=== PATIENT | female | born 1990 | race Caucasian/White ===

== ENCOUNTER 2018-07-27 18:18 | Observation (INO) | payer MEDICAID ==
[2018-07-27] MEDS ORDERED: ONDANSETRON HCL INJ/PF 4 MG/2 ML SDV IV ONE (18:52)
--- NOTE | 2018-07-27 18:54 | ER Document Report ---
ED General - General Chief Complaint: Abdominal Pain Stated Complaint: ABDOMEN PAIN Time Seen by Provider: 07/27/18 18:51 TRAVEL OUTSIDE OF THE [place] IN LAST 30 DAYS: No - HPI Notes: Patient is a 27-year-old female with no significant past medical history who presents to the ED complaining of right upper quadrant epigastric pain 1 week that has been relatively constant. Patient states that she has had some intermittent nausea with 1-2 episodes of vomiting, diarrhea, as well as a decreased p.o. intake secondarily. Patient states that she does have some right shoulder/scapular discomfort as well. Patient states that she is urinating normally. Patient has a history of a tubal ligation. Patient was referred here from urgent care for evaluation. Denies any headache, fever, URI , sore throat, chest pain, palpitations, syncope, cough, shortness of breath, wheeze, dyspnea, urinary retention, dysuria, hematuria, back pain, rash. - Related Data Allergies/Adverse Reactions: amoxicillin [Amoxicillin] Allergy (Intermediate, Verified 07/27/18 18:19) Urticaria Past Medical History - Social History Smoking Status: Unknown if Ever Smoked Family History: Reviewed & Not Pertinent Past Surgical History: Reports: Hx Oral Surgery, Hx Tonsillectomy - Immunizations Immunizations up to date: No Hx Diphtheria, Pertussis, Tetanus Vaccination: Yes - 09/29/13 Review of Systems - Review of Systems -: Yes All other systems reviewed and negative Physical Exam - Vital signs Vitals: Temp Pulse Resp BP Pulse Ox 98.9 F 108 H 16 124/71 100 07/27/18 18:22 07/27/18 18:22 07/27/18 18:22 07/27/18 18:22 07/27/18 18:22 - Notes Notes: PHYSICAL EXAMINATION: GENERAL: Well-appearing, well-nourished and in no acute distress. EYES: Pupils equal round and reactive to light, extraocular movements intact, sclera anicteric, conjunctiva are normal. ENT: Nares patent and without discharge. oropharynx clear without exudates. No tonsilar hypertrophy or erythema. Moist mucous membranes. NECK: Normal range of motion, supple without lymphadenopathy LUNGS: Breath sounds clear to auscultation bilaterally and equal. No wheezes rales or rhonchi. HEART: Regular rate and rhythm without murmurs, rubs, gallops. ABDOMEN: Soft, nondistended abdomen. No guarding, no rebound. No masses appreciated. Normal bowel sounds present. No CVA tenderness bilaterally. + RUQ tenderness and epigastric tenderness. No tenderness at McBurney point or lower pelvic. Musculoskeletal: FROM to passive/active. Strength 5+/5. Extremities: No cyanosis, clubbing, or edema b/l. Peripheral pulses 2+. Capillary refill less than 3 seconds. NEUROLOGICAL: Normal speech, normal gait. PSYCH: Normal mood, normal affect. SKIN: Warm, Dry, normal turgor, no rashes or lesions noted. Course - Re-evaluation Re-evalutation: 07/27/18 22:21 Patient continues to have right upper quadrant abdominal tenderness and pain. She has not had any episodes of emesis. Last p.o. intake was yesterday. Patient is showing an elevated white blood cell count at 14.3 with a left shift. LFTs and lipase are unremarkable. Urinalysis unremarkable. Ultrasound shows cholelithiasis Vitals are acceptable at this time. I did call and review with Dr. Gallegos who will come and evaluate the patient. 07/27/18 22:33 Dr. Gallegos evaluated the patient and will admit this patient for cholecystectomy. He would like fluids, Rocephin, n.p.o. Patient has itching with penicillins otherwise. - Vital Signs Vital signs: Temp Pulse Resp BP Pulse Ox 98.9 F 108 H 16 124/71 100 07/27/18 18:22 07/27/18 18:22 07/27/18 18:22 07/27/18 18:22 07/27/18 18:22 - Laboratory Result Diagrams: 07/27/18 19:45 07/27/18 19:45 Laboratory results interpreted by me: 07/27/18 07/27/18 07/27/18 19:45 19:45 19:45 WBC 14.3 H Hct 35.8 L MCV 77 L MCH 26.3 L RDW 14.9 H Absolute Neutrophils 8.9 H Total Protein 8.3 H Lipase 20.4 L Urine Protein 100 H Urine Ketones TRACE H Urine Urobilinogen 2.0 H Ur Leukocyte Esterase MODERATE H Discharge - Discharge Clinical Impression: RUQ abdominal pain, Acute calculous cholecystitis Condition: Stable Disposition: ADMITTED INPATIENT Admitting Provider: Surgicalist - Dr. Gallegos Unit Admitted: Surgical Floor Referrals: LOCALMD,NO [NO LOCAL MD] - Follow up as needed
--- NOTE | 2018-07-27 19:33 | RADIOLOGY REPORT (SQ) ---
EXAM DESCRIPTION: CHEST SINGLE VIEW COMPLETED DATE/TIME: 07/27/2018 7:18 pm REASON FOR STUDY: epigastric, RUQ pain COMPARISON: None. EXAM PARAMETERS: NUMBER OF VIEWS: One view. TECHNIQUE: Single frontal radiographic view of the chest acquired. RADIATION DOSE: NA LIMITATIONS: None. FINDINGS: LUNGS AND PLEURA: No opacities, masses or pneumothorax. No pleural effusion. MEDIASTINUM AND HILAR STRUCTURES: No masses. Contour normal. HEART AND VASCULAR STRUCTURES: Heart normal in size. Normal vasculature. BONES: No acute findings. HARDWARE: None in the chest. OTHER: No other significant finding. IMPRESSION: NO ACUTE RADIOGRAPHIC FINDING IN THE CHEST. TECHNICAL DOCUMENTATION: JOB ID: [id number] [employer]- All Rights Reserved Reading location - IP/workstation name: [email or web address]
[2018-07-27 20:13] LABS: ABSOLUTE BASOPHILS # (AUTO) 0.1 10^3/uL (0.0-0.2); ABSOLUTE MONOCYTES (AUTO) 1.3 10^3/uL (0.1-1.4); ABSOLUTE NEUT (AUTO) 8.9 10^3/uL (1.7-8.2); BASOPHILS % (AUTO) 0.6 % (0-2); HEMATOCRIT 35.8 % (36.0-47.0); HEMOGLOBIN 12.1 g/dL (12.0-15.5); LYMPHOCYTES % (AUTO) 27.8 % (13-45); MEAN CORPUSCULAR HEMOGLOBIN 26.3 pg (27.0-33.4); MEAN CORPUSCULAR VOLUME 77 fl (80-97); MONOCYTES % (AUTO) 9.3 % (3-13); PLATELET COUNT 260 10^3/uL (150-450); RED BLOOD COUNT 4.63 10^6/uL (3.72-5.28); RED CELL DISTRIBUTION WIDTH 14.9 % (11.5-14.0); SEGMENTED NEUTROPHILS % (AUTO) 62.3 % (42-78); TOTAL CELLS COUNTED % (AUTO) 100 %; WHITE BLOOD COUNT 14.3 10^3/uL (4.0-10.5)
[2018-07-27 20:27] LABS: ALANINE AMINOTRANSFERASE 25 U/L (9-52); ALBUMIN 4.5 g/dL (3.5-5.0); ALKALINE PHOSPHATASE 58 U/L (38-126); ANION GAP 14 (5-19); ASPARTATE AMINO TRANSFERASE 16 U/L (14-36); BILIRUBIN,DIRECT 0.4 mg/dL (0.0-0.4); BILIRUBIN,TOTAL 1.3 mg/dL (0.2-1.3); BLOOD UREA NITROGEN 11 mg/dL (7-20); CARBON DIOXIDE 24 mmol/L (22-30); CHLORIDE 100 mmol/L (98-107); GLUCOSE 85 mg/dL (75-110); LIPASE 20.4 U/L (23-300); POTASSIUM 3.6 mmol/L (3.6-5.0); SODIUM 137.8 mmol/L (137-145); TOTAL PROTEIN 8.3 g/dL (6.3-8.2)
[2018-07-27 21:06] LABS: AMORPHOUS SEDIMENT,URINE 4+ /HPF; APPEARANCE,URINE TURBID; BILIRUBIN,URINE NEGATIVE (NEGATIVE); COLOR,URINE YELLOW; GLUCOSE, URINE NEGATIVE (NEGATIVE); KETONES,URINE TRACE mg/dL (NEGATIVE); LEUKOCYTE ESTERASE,URINE MODERATE (NEGATIVE); NITRITE,URINE NEGATIVE (NEGATIVE); PROTEIN,URINE 100 mg/dL (NEGATIVE); URINE SPECIFIC GRAVITY 1.026
--- NOTE | 2018-07-27 22:13 | RADIOLOGY REPORT (SQ) ---
NAME: NAKUL RAMAN PROCEDURE: US ABDOMEN LIMITED ORDER DATE: 07/27/2018 6:52 PM CDT ACCESSION NUMBER: [id number] Clinical History: Epigastric/RUQ pain Indication: Same as above Comparison: None . Technique: Etienne scale evaluation of the right upper quadrant of the abdomen was done ultrasonographically along with limited color Doppler evaluation Findings: The gallbladder wall thickness is normal and measures 2.2 mm. There is cholelithiasis There is no pericholecystic fluid. There is no ultrasonographically positive Toro's sign. The common duct is normal in transverse diameter and measures 4.1 mm. There is no intraductal common duct calculus. The liver measures 18.0 centimeters in length. There are no focal liver lesions. There is no intrahepatic biliary dilatation. The main portal vein is of normal caliber and shows normal hepatopedal blood flow. The hepatic veins are patent. The pancreas, the visualized portions unremarkable The right kidney measures 11.6 cm in length. There is no hydronephrosis or nephrolithiasis in the right kidney. There is no documented ascitic fluid in the evaluated right upper quadrant of the abdomen. The visualized portion of the abdominal aorta and the inferior vena cava are unremarkable. There is no documented right-sided pleural effusion. Impression: Cholelithiasis and mild hepatomegaly Location of Interpretation: Teleradiology
[2018-07-27] MEDS ORDERED: MORPHINE SULFATE 10 MG/ML INJ IV ONE (22:21)
[2018-07-27] MEDS ORDERED: NORMAL SALINE 1000 ML 1,000 ML IV ONE (22:33)
[2018-07-27] MEDS ORDERED: CEFTRIAXONE 1 GM/D5W RTU 1 GM/50 ML RTUPB IV ONE (22:34)
[2018-07-27] MEDS ORDERED: RINGERS SOLUTION,LACTATED 1,000 ML IV PRN (22:35)
[2018-07-27] MEDS ORDERED: CEFTRIAXONE INJ 1000 MG VIAL ONE (22:42)
[2018-07-27] MEDS ORDERED: NICOTINE 21 MG/24 HR PATCH.TD24 TD ONE (23:02)
--- NOTE | 2018-07-27 23:17 | PDOC H&P ---
History of Present Illness Admission Date/PCP: 07/27/18 22:44 Patient complains of: RUQ pains History of Present Illness: NAKUL RAMAN is a 27 year old female who has been c/o RUQ pains for one week asso with off and on N/V and past 2-3 days diarrhea. Denies fver/chills. US showed gallstones. Past Surgical History Past Surgical History: Reports: Tonsillectomy, Tubal Ligation Social History Smoking Status: Current Every Day Smoker Cigarettes Packs Per Day: 1.0 Frequency of Alcohol Use: None Hx Recreational Drug Use: No Family History Family History: Reviewed & Not Pertinent Parental Family History Reviewed: Yes Children Family History Reviewed: No Sibling(s) Family History Reviewed.: No Medication/Allergy Home Medications: Pnv W-O Ca No5/Fe Fumarate/FA [-U Capsule] 1 cap PO DAILY 09/27/13 Benzocaine/Menthol [Dermoplast [place]] 1 spray TOP PRN PRN 09/29/13 Dibucaine 1% Ointment [Nupercainal 1% Oint 28 gm] 1 applic TOP PRN PRN 09/29/13 Ibuprofen [Motrin 800 mg Tablet] 1 tab PO Q8HP PRN 09/29/13 Allergies/Adverse Reactions: amoxicillin [Amoxicillin] Allergy (Intermediate, Verified 07/27/18 18:19) Urticaria Review of Systems Constitutional: PRESENT: as per HPI Eyes: PRESENT: other - no visual/hearing changes Cardiovascular: PRESENT: other - no chest pains/cough Gastrointestinal: PRESENT: abdominal pain, diarrhea, nausea, vomiting Genitourinary: PRESENT: other - no dysuria Neurological: PRESENT: other - no seizures Physical Exam Vital Signs: Temp Pulse Resp BP Pulse Ox 98.9 F 108 H 16 124/71 100 07/27/18 18:22 07/27/18 18:22 07/27/18 18:22 07/27/18 18:22 07/27/18 18:22 General appearance: PRESENT: mild distress Head exam: PRESENT: atraumatic Eye exam: PRESENT: conjunctiva pink Mouth exam: PRESENT: moist Neck exam: PRESENT: full ROM Respiratory exam: PRESENT: clear to auscultation micki Cardiovascular exam: PRESENT: RRR Pulses: PRESENT: normal radial pulses Vascular exam: PRESENT: normal capillary refill GI/Abdominal exam: PRESENT: soft, tenderness - RUQ Rectal exam: PRESENT: deferred Extremities exam: PRESENT: full ROM Musculoskeletal exam: PRESENT: ambulatory Neurological exam: PRESENT: alert, oriented to person, oriented to place, oriented to time, oriented to situation Psychiatric exam: PRESENT: appropriate affect Skin exam: PRESENT: normal color, warm Results Impressions: Chest X-Ray 07/27/18 18:52 IMPRESSION: NO ACUTE RADIOGRAPHIC FINDING IN THE CHEST. Assessment & Plan - Diagnosis (1) Acute calculous cholecystitis Is this a current diagnosis for this admission?: Yes - Time Time Spent: 30 to 50 Minutes - Inpatient Certification Medical Necessity: Need For IV Fluids, Need for Pain Control, Need for IV Antibiotics, Need for Surgery - Plan Summary Plan Summary: Keep NPO Hydrate Start IV antibiotics For Lap Dayana by Dr Turner in am.
[2018-07-27] MEDS ORDERED: MORPHINE SULFATE 10 MG/ML INJ IV PRN (23:18)
[2018-07-27] MEDS ORDERED: DEXTROSE 40% GEL 15 GM TUBE PO PRN ×2 (23:18)
[2018-07-27] MEDS ORDERED: DEXTROSE 50%-WATER 25 GM/50 ML DISP.SYRIN IV PRN ×2 (23:18)
[2018-07-27] MEDS ORDERED: DEXTROSE 5%-LACTATED RINGERS 1,000 ML IV PRN (23:18)
[2018-07-27] MEDS ORDERED: ONDANSETRON HCL INJ/PF 4 MG/2 ML SDV IV PRN (23:18)
[2018-07-27] MEDS ORDERED: GLUCAGON,HUMAN RECOMB 1 MG INJ SUBCUT PRN (23:18)
[2018-07-28] MEDS: METRONIDAZOLE 500 MG/NS RTU 500 MG/100 ML RTUPB IV SCH ×4 (01:07→22:12)
[2018-07-28] MEDS ORDERED: BUPIVACAINE HCL 0.5 % INJ/PF 30 ML SDV ONE (09:16)
[2018-07-28] MEDS ORDERED: DEXAMETHASONE SOD PHOSPHATE INJ 4 MG/1 ML VIAL ONE (10:01)
[2018-07-28] MEDS ORDERED: MIDAZOLAM 2 MG/2 ML INJ ONE (10:01)
[2018-07-28] MEDS ORDERED: ONDANSETRON HCL INJ/PF 4 MG/2 ML SDV ONE (10:01)
[2018-07-28] MEDS ORDERED: FENTANYL CITRATE INJ/PF 250 MCG/5 ML AMPULE ONE (10:01)
[2018-07-28] MEDS ORDERED: MORPHINE SULFATE 10 MG/ML INJ ONE (10:02)
[2018-07-28] MEDS ORDERED: PROPOFOL INJ 200 MG/20 ML VIAL IV ONE (10:02)
[2018-07-28] MEDS ORDERED: ACETAMINOPHEN 1,000 MG/100 ML RTUPB IV ONE (10:03)
[2018-07-28] MEDS ORDERED: METRONIDAZOLE 500 MG/NS RTU 500 MG/100 ML RTUPB IV ONE (10:50)
[2018-07-28 10:52] LABS: HEMATOCRIT 30.8 % (36.0-47.0); HEMOGLOBIN 10.5 g/dL (12.0-15.5); MEAN CORPUSCULAR HEMOGLOBIN 26.4 pg (27.0-33.4); MEAN CORPUSCULAR VOLUME 78 fl (80-97); PLATELET COUNT 213 10^3/uL (150-450); RED BLOOD COUNT 3.98 10^6/uL (3.72-5.28); RED CELL DISTRIBUTION WIDTH 14.7 % (11.5-14.0); WHITE BLOOD COUNT 8.3 10^3/uL (4.0-10.5)
[2018-07-28 10:53] LABS: ANION GAP 12 (5-19); BLOOD UREA NITROGEN 7 mg/dL (7-20); CALCIUM 8.1 mg/dL (8.4-10.2); CARBON DIOXIDE 23 mmol/L (22-30); CHLORIDE 103 mmol/L (98-107); GLUCOSE 97 mg/dL (75-110); POTASSIUM 3.5 mmol/L (3.6-5.0); SODIUM 138.1 mmol/L (137-145)
[2018-07-28] MEDS ORDERED: DIPHENHYDRAMINE HCL 50 MG/ML VIAL IV PRN (11:03)
[2018-07-28] MEDS ORDERED: MORPHINE SULFATE 10 MG/ML INJ IV PRN (11:03)
[2018-07-28] MEDS ORDERED: FENTANYL CITRATE INJ/PF 100 MCG/2 ML AMPUL IV PRN ×3 (11:03)
[2018-07-28] MEDS ORDERED: OXYCODONE-ACETAMINOPHEN 5-325 MG TABLET PO PRN ×2 (11:03)
[2018-07-28] MEDS ORDERED: PROMETHAZINE HCL INJ 25 MG/1 ML VIAL IV PRN ×2 (11:03)
[2018-07-28] MEDS ORDERED: MEPERIDINE HCL/PF INJ 25 MG/1 ML DISP.SYRIN IV PRN (11:03)
[2018-07-28] MEDS ORDERED: KETOROLAC TROMETHAMINE 10 MG TABLET PO PRN (12:54)
[2018-07-28] MEDS ORDERED: ONDANSETRON HCL INJ/PF 4 MG/2 ML SDV IV PRN (12:54)
--- NOTE | 2018-07-28 12:54 | Operative Report ---
Operative Report DATE OF SURGERY: 07/28/18 PREOPERATIVE DIAGNOSIS: Acute cholecystitis with cholelithiasis POSTOPERATIVE DIAGNOSIS: Same OPERATION: 1. Laparoscopic cholecystectomy. 2. Drainage of subhepatic space SURGEON: CATA GARZA ANESTHESIA: GA TISSUE REMOVED OR ALTERED: 1 gallbladder with stones COMPLICATIONS: None ESTIMATED BLOOD LOSS: 150 cc INTRAOPERATIVE FINDINGS: See below PROCEDURE: After obtaining informed consent, the patient was taken to the operating room. General Anesthesia was induced; the arms were extended, and the abdomen was exposed, and prepped and draped in a sterile fashion. Instrumentation was set up for laparoscopic cholecystectomy. Surgical plan and surgical timeout were conducted. A vertical incision was made above the umbilicus, and a verres needle was inserted uneventfully into the peritoneal cavity. Pneumoperitoneum was established. The verres needle was removed and a 5 mm trocar was inserted and a 5 mm flexible laparoscope was inserted. Visualization of the peritoneal cavity confirmed safe uneventful entry. Under direct visualization 3 additional 5 mm ports were established, one in the subxiphoid position and second in the subcostal position. The findings are significant for an acutely inflamed gallbladder with distention and marked edema. Photographs were taken. We aspirated the gallbladder for approximately 8 cc of dark bile. Graspers were placed on the fundus and midportion of the gallbladder, despite placing the patient in extreme reverse Trendelenburg and air planing her to the left side, it was difficult to visualize the under side of the infundibulum. In fact the gastroduodenal transition was somewhat tethered to the manas hepatis with edema and adhesions. The overall anatomy between the gallbladder infundibulum the manas hepatis, and the gastroduodenal area were all edematous and the tissue tethered, therefore we elected to proceed with a top-down approach. Graspers were repositioned and we began taking the gallbladder down the right lobe of the liver. This was a very tedious process requiring a hooked cautery dissection, using extensive amount of hook cautery dissection, suctioning and irrigation. The cystic artery was taken using the LigaSure along the very ill border of the gallbladder. We continued this dissection all the way down to the narrowing of the gallbladder. Getting around the gallbladder neck in a circumferential fashion we eventually got into the gallbladder, with the visualization of several stones. At this point we have the gallbladder suspended from its neck. The neck was very patulous however and would appear to be infundibulum was what was previously seen as being fixed to the rounding anatomic structures previously described will be first visualized this area at the beginning of the case. My colleague Dr. Bertrand came in the room and confirmed what we were visualizing was in fact the gallbladder suspended from its neck and the infundibulum now stuck into the region of the manas hepatis. The gallbladder was transected from its neck placed in an Endobag with spelled stones and brought out of the patient to the supraumbilical port site. We returned the peritoneal cavity, checked for bleeding and bile leak and there was none. The open now grasped with graspers and closed with a single application of a 0 PDS Endoloop. We felt the knot was secured satisfactorily. We did place a drain in the right upper quadrant Oscar trended to the appropriate length and sewed it to the skin with 2 oh Prolene suture. We checked the area for bleeding and there was none. The patient was leveled out irrigated again, and all ports removed under direct visualization, pneumoperitoneum evacuated wounds closed with 3-0 Vicryl 0 Vicryl above the umbilicus benzoin and Steri-Strips. Drain hooked to bulb suction. Patient tolerated the procedure well, extubated, taken recovery in stable condition. nent analysis. We returned to the peritoneal cavity check for bleeding, and evidence of bile leak, and there was none. We Confirmed satisfactory placement of clips on cystic duct and cystic artery were secured . At this point we felt the operation was complete. The subcutaneous tissue was then anesthetized with quarter percent Marcaine Sponge and needle counts are correct. All ports removed under direct visualization pneumoperitoneum evacuated, and 5 mm port wounds closed with 3-0 Vicryl suture, benzoin and Steri-Strips. The patient was extubated, and taken to the recovery room in stable condition.
[2018-07-28] MEDS: FENTANYL CITRATE INJ/PF 100 MCG/2 ML AMPUL ONE ×2 (13:00→13:12)
[2018-07-28] MEDS ORDERED: ROCURONIUM BROMIDE INJ 50 MG/5 ML VIAL IV ONE (15:07)
[2018-07-28] MEDS ORDERED: GLYCOPYRROLATE 1 MG/5 ML SYRINGE ONE (15:07)
[2018-07-28] MEDS ORDERED: SUCCINYLCHOLINE CHLORIDE INJ 200 MG/10 ML VIAL ONE (15:07)
[2018-07-28] MEDS ORDERED: NEOSTIGMINE METHYLSULFATE 10 MG/10 ML VIAL ONE (15:07)
[2018-07-28] MEDS: KETOROLAC TROMETHAMINE INJ/PF 30 MG/1 ML SDV IV PRN ×2 (17:23→23:21)
[2018-07-28] MEDS: DOCUSATE SODIUM 100 MG CAPSULE PO SCH (17:30)
[2018-07-29] MEDS: KETOROLAC TROMETHAMINE INJ/PF 30 MG/1 ML SDV IV PRN (05:46)
[2018-07-29] MEDS: METRONIDAZOLE 500 MG/NS RTU 500 MG/100 ML RTUPB IV SCH (05:46)
[2018-07-29] MEDS: DOCUSATE SODIUM 100 MG CAPSULE PO SCH (09:42)
[2018-07-29 10:56] VITALS: BP 121/75
== END 2018-07-29 11:10 | disposition home or self-care (01) ==
LOC: ER 18:18 → INTOOBSV 22:44 → EH 22:44 → 3N 07-28 01:00 → 4S 07-28 16:49
PROVIDERS: ATTEND Surgery
PROC: 0FT44ZZ Resection of Gallbladder, Percutaneous Endoscopic Approach (ICD-10-PCS; principal; 2018-07-28 10:00)
DX: K80.12 Calculus of gallbladder with acute and chronic cholecystitis without obstruction (principal); F17.210 Nicotine dependence, cigarettes, uncomplicated; Z98.51 Tubal ligation status; E66.9 Obesity, unspecified; Z68.37 Body mass index [BMI] 37.0-37.9, adult
CPT/HCPCS: 96376; 99285; 96361; 96374; 96375; 36415 ×2; 87040; 83690; 85025; 85027; 81025; 80048; 80053; 81001; 88304 ×2; 71045; 76705; 47562; G0378 ×3; J2250; J3490 ×6; J1100; J3010 ×2; J1885 ×2; J2270 ×2; J0330; J0696; J2405 ×2; J7030; J2704; J0131; 790